=== PATIENT | male | born 1975 | race Caucasian/White ===

== ENCOUNTER 2025-06-07 13:27 | Emergency (ER) | payer BC | END 2025-06-07 15:35 | disposition home or self-care (01) | LOC: MADERS 13:27 | DX: S93.402A Sprain of unspecified ligament of left ankle, initial encounter (principal); F17.290 Nicotine dependence, other tobacco product, uncomplicated; W18.42XA Slipping, tripping and stumbling without falling due to stepping into hole or opening, initial encounter | CPT/HCPCS: 99283 ==

== ENCOUNTER 2025-07-01 16:12 | Emergency (ER) | payer BC ==
[2025-07-01] MEDS ORDERED: Lidocaine 1%/Epinephrine 1:100K 10 ML VIAL ONE (16:24)
[2025-07-01] MEDS ORDERED: Bacitracin 1 PK ONE (16:24)
== END 2025-07-01 17:00 | disposition home or self-care (01) ==
LOC: MADERS 16:12
DX: S81.812A Laceration without foreign body, left lower leg, initial encounter (principal); F17.290 Nicotine dependence, other tobacco product, uncomplicated; W29.3XXA Contact with powered garden and outdoor hand tools and machinery, initial encounter; Y93.H2 Activity, gardening and landscaping
CPT/HCPCS: 12002; 99282